=== PATIENT | female | born 2000 | race Hispanic/Latino ===

== ENCOUNTER 2021-06-22 17:47 | Inpatient (IN) | payer BC ==
[2021-06-22] MEDS ORDERED: Misoprostol 100 MCG TAB VAG SCH (18:07)
[2021-06-22] MEDS ORDERED: Misoprostol 200 MCG TAB PR PRN (18:07)
[2021-06-22] MEDS ORDERED: Butorphanol Tartrate 1 MG/ML VIAL SLOW IVP PRN ×2 (18:07→18:08)
[2021-06-22] MEDS ORDERED: Misoprostol 200 MCG TAB PO SCH (18:07)
[2021-06-22] MEDS ORDERED: Ibuprofen 800 MG TAB PO PRN (18:07)
[2021-06-22] MEDS ORDERED: Acetaminophen 500 MG TAB PO PRN (18:07)
[2021-06-22] MEDS ORDERED: Diphenoxylate HCl/Atropine Tablet PO PRN ×2 (18:07)
[2021-06-22] MEDS ORDERED: Lactated Ringer's 1,000 ML IV SCH (18:07)
[2021-06-22] MEDS ORDERED: HYDROcodone/Acetaminophen 5/325 mg Tablet PO PRN ×2 (18:07)
[2021-06-22] MEDS ORDERED: NS w/ Oxytocin 30 units 500 ML IV SCH (18:07)
[2021-06-22] MEDS ORDERED: Lidocaine 1% (PF) 30 ML VIAL SC PRN (18:07)
[2021-06-22] MEDS ORDERED: Ondansetron PF 4 MG/2 ML Vial IVP PRN (18:07)
[2021-06-22] MEDS ORDERED: Promethazine HCl 25 MG/ML VIAL IM PRN (18:07)
[2021-06-22] MEDS ORDERED: hydrALAZINE 20 MG/ML VIAL SLOW IVP PRN (18:07)
[2021-06-22] MEDS ORDERED: ALPRAZolam 1 MG TAB PO PRN (18:11)
[2021-06-22 19:30] VITALS: BMI 29.2
[2021-06-22] MEDS ORDERED: Misoprostol 100 MCG TAB PO SCH (21:15)
[2021-06-22] MEDS: Zolpidem Tartrate 5 MG TAB PO PRN (21:18)
[2021-06-23] MEDS ORDERED: Misoprostol 100 MCG TAB PO SCH ×2 (01:00→07:00)
[2021-06-23] MEDS: Ketorolac Tromethamine 30 MG/ML VIAL IVP SCH ×3 (03:38→18:30)
[2021-06-23] MEDS: Zolpidem Tartrate 5 MG TAB PO PRN (09:43)
[2021-06-23 10:10] LABS: Hemoglobin 11.7 g/dL (12.0-15.5); Mean Corpuscular HGB CONC 33.4 g/dL (32.0-36.0); Mean Corpuscular Volume 86.8 fl (81.6-98.3); Mean Platelet Volume 12.8 fl (7.4-10.4); Platelet Count 144 10x3/uL (150-450); RBC Distribution Width 13.1 % (11.5-14.5); Red Blood Cell (RBC) Count 4.03 10x6/uL (3.90-5.03); White Blood Cell (WBC) Count 12.6 10x3/uL (3.5-10.5)
[2021-06-23] MEDS ORDERED: Misoprostol 200 MCG TAB VAG SCH ×2 (10:45→13:45)
[2021-06-23] MEDS ORDERED: Misoprostol 100 MCG TAB ONE (10:48)
[2021-06-23] MEDS ORDERED: Zolpidem Tartrate 5 MG TAB PO PRN (18:01)
[2021-06-23] MEDS ORDERED: Boostrix 0.5 ML (Tdap) VIAL IM ONE (18:01)
[2021-06-23] MEDS ORDERED: Milk Of Magnesia 30 ML UDCUP PO PRN (18:01)
[2021-06-23] MEDS ORDERED: Ondansetron PF 4 MG/2 ML Vial IVP PRN (18:01)
[2021-06-23] MEDS ORDERED: Bisacodyl 10 MG SUPP PR PRN (18:01)
[2021-06-23] MEDS ORDERED: hydrALAZINE 20 MG/ML VIAL SLOW IVP PRN (18:01)
[2021-06-23] MEDS ORDERED: Acetaminophen/Codeine 30-300mg Tablet PO PRN ×2 (18:01)
[2021-06-23] MEDS ORDERED: ALPRAZolam 1 MG TAB PO PRN (18:04)
[2021-06-23] MEDS ORDERED: Docusate 100 MG CAP PO SCH (21:00)
[2021-06-23] MEDS: Ibuprofen 800 MG TAB PO SCH (21:16)
[2021-06-24] MEDS: Ibuprofen 800 MG TAB PO SCH (05:00)
[2021-06-24 06:04] LABS: Hemoglobin 11.2 g/dL (12.0-15.5); Mean Corpuscular HGB CONC 33.2 g/dL (32.0-36.0); Mean Corpuscular Hemoglobin 28.6 pg (27.0-33.0); Mean Platelet Volume 12.1 fl (7.4-10.4); Platelet Count 135 10x3/uL (150-450); RBC Distribution Width 13.2 % (11.5-14.5); Red Blood Cell (RBC) Count 3.92 10x6/uL (3.90-5.03); White Blood Cell (WBC) Count 10.3 10x3/uL (3.5-10.5)
[2021-06-24] MEDS: Ferrous Sulfate 325 MG TAB PO SCH (07:44)
[2021-06-24 07:50] VITALS: BP 106/61; TEMP 97.9
== END 2021-06-24 09:28 | disposition home or self-care (01) | DRG 779 ==
LOC: CSHLD 17:47 → CSHPED 06-23 18:01
PROVIDERS: ADMIT Obstetrics & Gynecology; ATTEND Obstetrics & Gynecology
DX: O02.1 Missed abortion (principal); Z86.16 Personal history of COVID-19; Z90.89 Acquired absence of other organs
CPT/HCPCS: 36415; 85027; 88305

== ENCOUNTER 2021-12-01 17:29 | Emergency (ER) | payer BC ==
[2021-12-01 18:12] LABS: Bilirubin Neg (Negative); Blood, Urine 25 (Negative); Clarity Clear (Clear); Glucose, Urine (Dipstick) Normal (Negative); Ketone, Urine Negative (Negative); Leukocyte 25 (Negative); Nitrite Negative (Negative); Protein, Urine (Dipstick) Negative (Neg-Trace); Urobilinogen Normal mg/dL (Less than 2)
[2021-12-01 18:13] LABS: Pregnancy Test - Urine (BHCG) POSITIVE (Negative); Pregu Control Background? CLEAR/WHITE (CLR/WHITE); Pregu Control Bar Appear? YES (CONTROL BAR)
[2021-12-01 18:24] LABS: Bacteria/HPF 2+ HPF (None Seen); RBC/HPF 0-3 HPF (0-3)
[2021-12-01 19:39] LABS: #Basophils 0.1 10x3/uL (0.0-0.2); #Eosinphils 0.1 10x3/uL (0.0-0.5); #Monocytes 0.6 10x3/uL (0.0-1.1); #Neutrophils 9.3 10x3/uL (1.5-8.4); %Basophils 0.4 % (0.0-2.0); %Eosinophils 0.9 % (0.0-6.0); %Lymphocytes 20.8 % (18.0-47.0); %Monocytes 4.7 % (0.0-10.0); Hemoglobin 13.3 g/dL (12.0-15.5); Mean Corpuscular HGB CONC 33.4 g/dL (32.0-36.0); Mean Corpuscular Hemoglobin 27.9 pg (27.0-33.0); Mean Corpuscular Volume 83.4 fl (81.6-98.3); Mean Platelet Volume 12.9 fl (7.4-10.4); Platelet Count 158 10x3/uL (150-450); RBC Distribution Width 14.4 % (11.5-14.5); Red Blood Cell (RBC) Count 4.77 10x6/uL (3.90-5.03); White Blood Cell (WBC) Count 12.7 10x3/uL (3.5-10.5)
[2021-12-01 19:46] LABS: ALT (SGPT) 13 U/L (8-55); AST (SGOT) 13 U/L (5-34); Albumin 4.5 g/dL (3.5-5.0); Alkaline Phosphatase 74 U/L (40-110); Anion Gap 15 mmol/L (10-20); BUN (Urea Nitrogen) 9 mg/dL (7.0-18.7); Bilirubin, Total 0.8 mg/dL (0.2-1.2); Calc. Creatinine Clearance 0 mL/min (70-130); Carbon Dioxide 23 mmol/L (22-29); Chloride 104 mmol/L (98-107); Estimated GFR 114; Globulin 3.3 g/dL (2.4-3.5); Glucose 93 mg/dL (70-105); Potassium 4.5 mmol/L (3.5-5.1); Protein, Total 7.8 g/dL (6.0-8.3); Sodium 137 mmol/L (136-145)
== END 2021-12-01 21:54 | disposition home or self-care (01) ==
LOC: CSHERS 17:29
DX: O20.0 Threatened abortion (principal); Z3A.01 Less than 8 weeks gestation of pregnancy
CPT/HCPCS: 36415; 76856; 80053; 81003; 81015; 81025; 84702; 85025; 86850; 86900; 86901; 93976

== ENCOUNTER 2022-07-10 05:30 | Inpatient (IN) | payer BC ==
[2022-07-10] MEDS ORDERED: Promethazine HCl 25 MG/ML VIAL IM PRN (23:04)
[2022-07-10] MEDS ORDERED: HYDROcodone/Acetaminophen 5/325 mg Tablet PO PRN ×2 (23:04)
[2022-07-10] MEDS ORDERED: Zolpidem Tartrate 5 MG TAB PO PRN (23:04)
[2022-07-10] MEDS ORDERED: Lidocaine 1% (PF) 30 ML VIAL SC PRN (23:04)
[2022-07-10] MEDS ORDERED: Misoprostol 200 MCG TAB PR PRN (23:04)
[2022-07-10] MEDS ORDERED: Butorphanol Tartrate 1 MG/ML VIAL SLOW IVP PRN (23:04)
[2022-07-10] MEDS ORDERED: Docusate 100 MG CAP PO PRN (23:04)
[2022-07-10] MEDS ORDERED: Acetaminophen 500 MG TAB PO PRN (23:04)
[2022-07-10] MEDS ORDERED: hydrALAZINE 20 MG/ML VIAL SLOW IVP PRN (23:04)
[2022-07-10] MEDS ORDERED: Carboprost 250 MCG/ML AMP IM PRN (23:04)
[2022-07-10] MEDS ORDERED: Ibuprofen 800 MG TAB PO PRN (23:04)
[2022-07-10] MEDS ORDERED: Ondansetron PF 4 MG/2 ML Vial IVP PRN (23:04)
[2022-07-10] MEDS ORDERED: Diphenoxylate HCl/Atropine Tablet PO PRN ×2 (23:04)
[2022-07-10 23:08] VITALS: BMI 34.6
[2022-07-10] MEDS ORDERED: Lactated Ringer's 1,000 ML IV SCH (23:30)
[2022-07-10] MEDS ORDERED: NS w/ Oxytocin 30 units 500 ML IV SCH ×2 (23:30)
[2022-07-10] MEDS: Misoprostol 100 MCG TAB VAG SCH (23:35)
[2022-07-10 23:41] LABS: Hemoglobin 12.5 g/dL (12.0-15.5); Mean Corpuscular HGB CONC 34.7 g/dL (32.0-36.0); Mean Corpuscular Hemoglobin 29.4 pg (27.0-33.0); Mean Corpuscular Volume 84.7 fl (81.6-98.3); Mean Platelet Volume 12.5 fl (7.4-10.4); Platelet Count 146 10x3/uL (150-450); RBC Distribution Width 14.7 % (11.5-14.5); Red Blood Cell (RBC) Count 4.25 10x6/uL (3.90-5.03); White Blood Cell (WBC) Count 11.8 10x3/uL (3.5-10.5)
[2022-07-11 00:17] LABS: Syphilis Antibody Nonreactive (Nonreactive); Syphilis Antibody Index 0.05 S/CO (<1.00 Non-Reactive)
[2022-07-11 00:18] LABS: HBSAg Index 0.13 S/CO (0-0.99); HIV (1/2) Antibody/Antigen Non-Reactive (NonReactive); HIV 1/2 INDEX 0.08 S/CO (<1.00); Hep B Surf Ag Non-Reactive S/CO (NonReactive)
[2022-07-11] MEDS: Misoprostol 100 MCG TAB VAG SCH ×2 (02:38→12:06)
[2022-07-11] MEDS ORDERED: Ondansetron PF 4 MG/2 ML Vial IVP PRN (09:03)
[2022-07-11] MEDS ORDERED: Benzocaine-Menthol 82.5 ML CAN TOP PRN (09:03)
[2022-07-11] MEDS ORDERED: Milk Of Magnesia 30 ML UDCUP PO PRN (09:03)
[2022-07-11] MEDS ORDERED: hydrALAZINE 20 MG/ML VIAL SLOW IVP PRN (09:03)
[2022-07-11] MEDS ORDERED: Boostrix 0.5 ML (Tdap) VIAL (>/=7 yrs of age) IM ONE (09:03)
[2022-07-11] MEDS ORDERED: HYDROcodone/Acetaminophen 5/325 mg Tablet PO PRN ×2 (09:03)
[2022-07-11] MEDS ORDERED: Bisacodyl 10 MG SUPP PR PRN (09:03)
[2022-07-11] MEDS ORDERED: Misoprostol 200 MCG TAB VAG PRN (09:13)
[2022-07-11] MEDS ORDERED: diphenhydrAMINE 25 MG CAP PO PRN (09:13)
[2022-07-11] MEDS ORDERED: Lanolin Ointment 7 GM TUBE TOP PRN (09:13)
[2022-07-11] MEDS ORDERED: Zolpidem Tartrate 5 MG TAB PO PRN (09:13)
[2022-07-11] MEDS ORDERED: Preparation H Ointment 28 GM TUBE PR PRN (09:13)
[2022-07-11] MEDS ORDERED: NS w/ Oxytocin 30 units 500 ML IV SCH (09:15)
[2022-07-11 09:36] LABS: RapidComm Collect By CBN
[2022-07-11 09:37] LABS: RapidComm Collect By CBN; pH (Cord, venous) 7.111 (7.250-7.350)
[2022-07-11] MEDS: Ibuprofen 800 MG TAB PO SCH ×2 (16:03→22:46)
[2022-07-11] MEDS: Ferrous Sulfate 325 MG TAB PO SCH (17:12)
[2022-07-11] MEDS: Docusate 100 MG CAP PO SCH (22:46)
[2022-07-12 05:09] LABS: Hemoglobin 9.4 g/dL (12.0-15.5); Mean Corpuscular HGB CONC 34.7 g/dL (32.0-36.0); Mean Corpuscular Hemoglobin 29.8 pg (27.0-33.0); Mean Platelet Volume 13.4 fl (7.4-10.4); Platelet Count 119 10x3/uL (150-450); RBC Distribution Width 15.2 % (11.5-14.5); Red Blood Cell (RBC) Count 3.15 10x6/uL (3.90-5.03); White Blood Cell (WBC) Count 15.9 10x3/uL (3.5-10.5)
[2022-07-12] MEDS: Ibuprofen 800 MG TAB PO SCH ×3 (05:44→21:40)
[2022-07-12] MEDS: Docusate 100 MG CAP PO SCH ×2 (08:26→21:40)
[2022-07-12] MEDS: Prenatal Vitamin 1 TAB PO SCH (08:26)
[2022-07-12] MEDS: Ferrous Sulfate 325 MG TAB PO SCH ×2 (08:26→17:42)
[2022-07-13] MEDS: Ibuprofen 800 MG TAB PO SCH (05:11)
[2022-07-13] MEDS ORDERED: Bisacodyl 10 MG SUPP PR PRN (07:33)
[2022-07-13] MEDS ORDERED: hydrALAZINE 20 MG/ML VIAL SLOW IVP PRN (07:33)
[2022-07-13] MEDS ORDERED: Boostrix 0.5 ML (Tdap) VIAL (>/=7 yrs of age) IM ONE (07:33)
[2022-07-13] MEDS ORDERED: Milk Of Magnesia 30 ML UDCUP PO PRN (07:33)
[2022-07-13] MEDS ORDERED: Ferrous Sulfate 325 MG TAB PO SCH (08:00)
[2022-07-13 08:03] VITALS: BP 136/79; TEMP 98.1
[2022-07-13] MEDS ORDERED: Docusate 100 MG CAP PO SCH (09:00)
[2022-07-13] MEDS: Prenatal Vitamin 1 TAB PO SCH (09:37)
== END 2022-07-13 14:00 | disposition home or self-care (01) | DRG 806 ==
LOC: CSHLD 22:39 → CSHPP 07-11 11:20
PROVIDERS: ADMIT Obstetrics & Gynecology; ATTEND Obstetrics & Gynecology
PROC: 3E033VJ Introduction of Other Hormone into Peripheral Vein, Percutaneous Approach (ICD-10-PCS; principal; 2022-07-11)
PROC: 10E0XZZ Delivery of Products of Conception, External Approach (ICD-10-PCS; 2022-07-11)
PROC: 0KQM0ZZ Repair Perineum Muscle, Open Approach (ICD-10-PCS; 2022-07-11)
PROC: 3E0P7VZ Introduction of Hormone into Female Reproductive, Via Natural or Artificial Opening (ICD-10-PCS; 2022-07-11)
DX: O99.12 Other diseases of the blood and blood-forming organs and certain disorders involving the immune mechanism complicating childbirth (principal); D68.59 Other primary thrombophilia; Z37.0 Single live birth; Z98.890 Other specified postprocedural states; Z90.49 Acquired absence of other specified parts of digestive tract; Z86.16 Personal history of COVID-19; Z79.82 Long term (current) use of aspirin; Z79.899 Other long term (current) drug therapy; O70.1 Second degree perineal laceration during delivery; Z3A.38 38 weeks gestation of pregnancy
CPT/HCPCS: 36415; 82805; 85027; 86780; 86850; 86900; 86901; 87340; 87389; 88307; J0595; J1650; J2001; J2590